=== PATIENT | female | born 1960 | race Caucasian/White ===

== ENCOUNTER 2021-01-29 18:32 | Emergency (ER) | payer OTHER ==
[2021-01-29] MEDS ORDERED: hydrOXYzine 25 MG TAB ONE (19:11)
[2021-01-29] MEDS ORDERED: Lidocaine 1% w/Epinephrine 1:100K 20 ML VIAL ONE (19:11)
[2021-01-29] MEDS ORDERED: Boostrix 0.5 ML (Tdap) VIAL ONE (19:33)
[2021-01-29] MEDS ORDERED: Bacitracin 1 PK ONE (20:10)
== END 2021-01-29 20:27 | disposition home or self-care (01) ==
LOC: CSHERS 18:32
DX: S61.412A Laceration without foreign body of left hand, initial encounter (principal); W25.XXXA Contact with sharp glass, initial encounter
CPT/HCPCS: 12002; 90471; 90715